=== PATIENT | female | born 1995 | race Caucasian/White ===

== ENCOUNTER 2021-03-28 18:31 | Emergency (ER) | payer OTHER, MEDICAID, SELFPAY ==
--- NOTE | ~2021-03-28 | XR_ITS ---
XR knee RT min 4V 03/28/2021 19:01 Indication: Right knee pain Procedure: 4 views right knee Comparison: No prior studies for comparison. Findings: No fracture or traumatic malalignment. No significant joint effusion. No foreign bodies. Impression: 1: No acute bone or joint abnormality. Reviewed, dictated and finalized at location A. Impression: 1: No acute bone or joint abnormality.
--- NOTE | ~2021-03-28 | XR_ITS ---
XR hip RT 2V w AP pelvis 03/28/2021 19:01 Indication: Right leg pain after trauma Procedure: AP pelvis and 2 views right hip Comparison: No prior studies for comparison. Findings: No fracture, subluxation or dislocation. Sacral foramen are symmetric. Pelvic rings are int act. No significant soft tissue abnormality. No foreign bodies. Impression: 1: No acute bone or joint abnormality. Reviewed, dictated and finalized at location A. Impression: 1: No acute bone or joint abnormality.
[2021-03-28 18:41] VITALS: BP 112/70; PULSE 72; RESP 16; TEMP 36.4; O2SAT 100
--- NOTE | 2021-03-28 19:00 | PC.NURSE ---
Ambulatory steady gait from , s/p [employer] work injury 03/23, 90lb box flew off belt hitting pt's anterior R knee, no fall. Pt reports lingering R hip pain. No deformity or wounds
--- NOTE | 2021-03-28 19:47 | ED.LOWEXIN ---
HPI - Extremity Injury (Lower) General Chief Complaint: Extremity Injury, Lower Stated Complaint: i got hurt at work 3 days ago Time Seen by Provider: 03/28/21 19:04 Source: patient Mode of arrival: ambulatory Limitations: no limitations History of Present Illness HPI Narrative: Patient is a 26-year-old female who presents complaining of right knee and right hip and lower back pain. Patient reports a 90 pound object came down a ramp and hit patient in the knee while at work. Patient reports right knee pain and lower back pain that radiates to the hip and knee. She reports injury approximately 4 days ago. She reports pain of 3/10 at this time. She reports taking [id number] medications with limited relief. Patient reports increased pain with ambulation. She denies significant medical history. Related Data Allergies Allergy/AdvReac Type Severity Reaction Status Date / Time No Known Allergies Allergy Verified 03/28/21 19:17 Review of Systems Review of Systems: Narrative: CONSTITUTIONAL: Denies fever, chills, or sweats. EYES: Denies visual changes, redness, or discharge. ENT: Denies rhinorrhea, congestion, sore throat, or otalgia. CARDIOVASCULAR: Denies chest pain, palpitations, or edema. RESPIRATORY: Denies cough or dyspnea. GASTROINTESTINAL: Denies abdominal pain, nausea, vomiting, or diarrhea. GENITOURINARY: Denies dysuria or hematuria. SKIN: Denies rash or itching. MUSCULOSKELETAL: Reports right knee pain, right hip pain and right lower back pain NEUROLOGIC: Denies headache, numbness, dizziness, or weakness. PSYCHIATRIC: Denies anxiety or depression. [facility] Social History Social History (Updated 03/28/21 @ 19:49 by BARTOLO Walker) Smoking status: Current every day smoker Tobacco type: cigarettes Alcohol intake: current Alcohol use details: Occasional Substance use: never Living arrangements: with family Occupation/Education: occupation Gender identity (if verbalized by the patient): Female Comments At the time of signature, I have reviewed and agree with nursing past medical, surgical, social, and family history unless otherwise noted. Please see nursing chart for further information. There is no relevant family history pertinent to the presenting complaint. Exam Narrative: Exam Narrative: GENERAL: Well-appearing, well-nourished, and in no acute distress. HEAD: Normocephalic, atraumatic. EYES: EOMI. No redness or drainage. Conjunctiva are normal. ENT: Mucous membranes pink and moist. CHEST: No respiratory distress. HEART: Regular rate and rhythm. EXTREMITIES: Normal range of motion. No edema. Tenderness with palpation of the right knee and right paraspinous muscles SKIN: Warm, dry, no rash. NEURO: No focal deficits. Alert and oriented x3. Gait steady. PSYCH: Normal affect. No signs of depression or anxiety. Course Vital Signs Vital signs: Vital Signs Temperature 36.4 C 03/28/21 18:41 Pulse Rate 72 03/28/21 18:41 Respiratory Rate 16 03/28/21 18:41 Blood Pressure 112/70 03/28/21 18:41 Pulse Oximetry 100 03/28/21 18:41 Temperature 36.4 C 03/28/21 18:41 Pulse Rate 72 03/28/21 18:41 Respiratory Rate 16 03/28/21 18:41 Blood Pressure 112/70 03/28/21 18:41 Pulse Oximetry 100 03/28/21 18:41 Reviewed MDM - Extremity Injury (Lower) MDM Narrative Medical decision making narrative: Patient's x-ray shows no acute osseous injury. Discussed with patient most likely musculoskeletal pain. Patient to follow-up with orthopedics. Patient agrees with plan of care. Patient is stable for discharge home with outpatient follow-up as discussed. Differential Diagnosis Differential diagnosis: Likely other (Fracture, sprain, strain, contusion) Critical Care Time Critical Care Time Critical Care Time: No Discharge Plan Discharge Clinical Impression: Sciatica, Acute knee pain Patient Disposition: Home, Self-Care Condition: Stable Instruction
== END 2021-03-28 20:05 | disposition home or self-care (01) ==
PROVIDERS: Emergency Provider Nurse Practitioner
DX: M54.41 Lumbago with sciatica, right side (principal); M25.561 Pain in right knee
CPT/HCPCS: 73502; 73564; 99284